=== PATIENT | female | born 1955 | race Caucasian/White ===

== ENCOUNTER 2023-09-21 20:48 | Emergency (ER) | payer OTHER, SELFPAY ==
[2023-09-21] MEDS: BENADRYL 25 MG PO ×2 (20:58→23:36)
--- NOTE | 2023-09-21 23:14 | ED.GENMED ---
History of Present Illness
General
Chief Complaint: Allergic Reaction
Source: patient
Exam Limitations: none
Time Seen by Provider: 09/21/23 23:13
Nursing documentation reviewed up to this point in time: agreed with
History of Present Illness
History of Present Illness:
The patient is a pleasant 68-year-old female who reports that earlier she drank out of her water bottle without looking and noticing that there were ants on her water bottle, and large black ants went onto her mouth and crawled down her arms and
legs. Patient reports that she got stung multiple times by the ants. She has redness and itching on her arms and legs. She also was bit on her upper lip and has mild swelling of her upper lip. Patient reports she did not take any medicine prior
to arrival. Patient reports that she feels slightly weird in her throat. She denies any difficulty breathing.
Past History
Past History
ED Past Medical History: Arrthythmia (Paroxysmal atrial fibrillation), Cancer (Right breast cancer 2007 treated with lumpectomy, chemotherapy and radiation.) and Hyperthyroidism
ED Past Surgical History: Other (Right breast lumpectomy 2006)
Social History
Tobacco: Former smoker
Alcohol: None
Personal:
Living: with family
Employment: Employed
Family History
Family History: Other (Noncontributory)
Review of Systems
Review of Systems
Allergies reviewed?: Yes
All Other Systems: ROS reviewed and negative except as documented in HPI and ROS
Constitutional: Reports no symptoms
EENT: Reports other (Mild swelling of mid upper lip)
Respiratory: Reports no symptoms
Cardiac: Reports no symptoms
ABD/GI: Reports no symptoms
: Reports no symptoms
Musculoskeletal: Reports no symptoms
Skin: Reports itching and rash
Neurological: Reports no symptoms
Endocrine: Reports no symptoms
Hematologic/Lymphatic: Reports no symptoms
Psychiatric: Reports no symptoms
Phy Exam
Physical Exam
Physical Exam:
Physical Exam
General: no apparent distress, not acutely ill. Well and comfortable appearing
Neck: supple. Mild erythema and swelling of the mid upper lip. No swelling of lower lip. No swelling of eyelids. No conjunctival injection. No pooling of saliva. No uvular swelling. No hoarseness observed. Patient
appears calm and relaxed. She is breathing comfortably without stridor
Heart: s1/s2 regular rate and rhythm, no murmur. equal radial pulses.
Lungs: no acute respiratory distress. clear bilaterally
Abdomen: Soft, nontender
Neuro: alert and oriented. no focal neurological deficits
Skin: 1-2 papules on bilateral arms and legs which patient states are ant bites and are itchy. No hives
Psychiatric: well kept. interactive and cooperative
Extremities: no edema.
Course
Orders/Labs/Results
Orders:
Orders
09/21/23 20:57
Diphenhydramine [Benadryl] 25 mg .ROUTE .STK-MED ONE
09/21/23 20:58
Diphenhydramine [Benadryl] 25 mg PO NOW STA
09/21/23 23:24
Diphenhydramine [Benadryl] 25 mg PO NOW STA
09/21/23 23:25
Prednisone [Deltasone] 40 mg PO NOW STA
Vital Signs
Initial and Last Documented VS:
Initial Vital Signs
Temp Pulse Resp BP Pulse Ox
98.4 F 98 18 156/96 98
09/21/23 20:50 09/21/23 20:50 09/21/23 20:50 09/21/23 20:50 09/21/23 20:50
Last Documented Vital Signs
Temp Pulse Resp BP Pulse Ox
98.4 F 78 18 162/91 99
09/21/23 20:50 09/21/23 23:44 09/21/23 23:44 09/21/23 23:44 07/31/24 23:44
MDM/Problems Addressed
Differential Diagnosis Includes:
Acute allergic reaction, contact dermatitis
MDM/Problems Addressed:
Patient presents with acute itchy ant bites, including mid upper lip
*Pulse Oximetry
Patient hypoxic: no
*EKG
Interpreted by ED Provider?: NA
*Helper Teacher Interpretation
Rate: Helper Teacher- N/A
*Critical Care Note
Total Time (30-74mins, 75-104mins- exclusive of procedures): Not Applicable
Data Reviewed
Source: patient
Patient Management
Social determinants of health affecting care: Living situation and Strong social support
Escalation/DeEscalation of care consider admission/obs:
Patient shows no sign of any airway compromise. She is breathing comfortably. Patient will be encouraged to continue to take Benadryl and started on steroids.
ED Attending Note
-
Portions of this chart may have been created with voice recognition software.� Occasional wrong word or��sound alike� substitutions may have occurred due to the inherent limitations of voice recognition software.
Discharge Plan
Departure
Patient Disposition: Home (Routine Discharge)
Date of Disposition: 09/21/23
Time of Disposition: 23:28
Patient with high blood pressure during this ER visit?: Yes
Condition: Good
Covid-19: Not Applicable
Discharge Problem:
Allergic reaction to insect bite
Instructions: Allergic Reaction ED
Prescriptions:
New
prednisone 10 mg tablet
10 mg PO DAILY Qty: 12 0RF
Rx Instructions:
Take 3 tablets by mouth on day 2 and 3
Take 2 tablets by mouth on day 4 and 5
Take 1 tablet by mouth once a 6 and 7
epinephrine [EpiPen 2-Edgar] 0.3 mg/0.3 mL auto-injector
0.3 ml IM ONCE PRN (Reason: anaphylaxis) Qty: 2 0RF
No Action
ibuprofen 600 MG tablet
600 mg PO QIDPRN PRN (Reason: pain, take with food.) Qty: 30 0RF
calcium carbonate [Antacid Extra-Strength] 1 TABLET tablet,chewable
2 tab PO HS
omeprazole 40 MG capsule,delayed release(DR/EC)
40 mg PO DAILY
nadolol 20 MG tablet
20 mg PO HS
ranitidine HCl [Taladine] 300 MG capsule
300 mg PO HS
melatonin 5 MG tablet
5 mg PO HS
methimazole 5 MG tablet
3.75 mg PO HS
Patient Comments:
3/4 OF A 5MG TABLET
fluticasone propionate 1 SPRAY spray,suspension
1 spray intranasal DAILY PRN (Reason: NASAL CONGESTION)
Vitamin B Complex-50
1 tab PO HS
rivaroxaban [Xarelto] 20 MG tablet
20 mg PO QPM
Referrals:
Yesy Caraballo MD [Family Provider] -
Activity Restrictions/Additional Instructions:
An epinephrine pen was also prescribed to you to use if you are unable to swallow your saliva, if you develop tongue swelling, or any difficulty breathing.
Please take 50 mg of Benadryl every 8 hours as needed for any lingering lip swelling or itching.
Interventions
Interventions:
*Risk Screen - Suicide Last Done: 09/21/23 20:50
*General Assessment Last Done: 09/21/23 20:50
*Neglect/Abuse Screening Last Done: 09/21/23 20:50
*Nursing Disposition Last Done: 09/21/23 23:44
ED- Cardiac Assessment Last Done: 09/21/23 23:38
ED- Pulmonary Assessment Last Done: 09/21/23 23:38
ED-Skin Assessment Last Done: 09/21/23 23:38
Discharge Date and Time
Discharge Date/Time: 09/21/23 23:45
Print Language: [id number]
[2023-09-21] MEDS: DELTASONE 40 MG PO (23:36)
== END 2023-09-21 23:45 | disposition home or self-care (01) ==
LOC: EMR 20:48
PROVIDERS: EMERGENCY PHYSICIAN Emergency Medicine; FAMILY PHYSICIAN Emergency Medicine
DX: T63.481A Toxic effect of venom of other arthropod, accidental (unintentional), initial encounter (principal); X58.XXXA Exposure to other specified factors, initial encounter; E05.90 Thyrotoxicosis, unspecified without thyrotoxic crisis or storm; I48.0 Paroxysmal atrial fibrillation; Z87.891 Personal history of nicotine dependence
CPT/HCPCS: 99282

== ENCOUNTER → 2024-03-09 06:46 | Outpatient (REF) | payer OTHER, SELFPAY | LOC: HWWDC 06:46 | PROVIDERS: ATTENDING PHYSICIAN Obstetrics & Gynecology; FAMILY PHYSICIAN Emergency Medicine; REFERRING PHYSICIAN Internal Medicine Hematology & Oncology | DX: Z12.31 Encounter for screening mammogram for malignant neoplasm of breast (principal) | CPT/HCPCS: 77063; 77067 ==

== ENCOUNTER → 2024-06-29 10:21 | Outpatient (REF) | payer OTHER, SELFPAY | LOC: HWRAD 10:21 | PROVIDERS: ATTENDING PHYSICIAN Family Medicine | DX: M25.562 Pain in left knee (principal) | CPT/HCPCS: 73564 ==

== ENCOUNTER 2024-10-16 17:54 | Outpatient (RCR) | payer OTHER, SELFPAY | END 2024-10-16 23:59 | disposition home or self-care (01) | LOC: RPT 17:54 | PROVIDERS: ATTENDING PHYSICIAN Family Medicine | DX: M25.562 Pain in left knee (principal); Z73.6 Limitation of activities due to disability; M17.12 Unilateral primary osteoarthritis, left knee; M62.81 Muscle weakness (generalized); R26.89 Other abnormalities of gait and mobility | CPT/HCPCS: 97010; 97110; 97162; 97530 ==

== ENCOUNTER 2024-11-13 17:55 | Outpatient (RCR) | payer OTHER, SELFPAY | END 2024-11-13 23:59 | disposition home or self-care (01) | LOC: RPT 17:55 | PROVIDERS: ATTENDING PHYSICIAN Family Medicine | DX: M25.562 Pain in left knee (principal); Z73.6 Limitation of activities due to disability; M17.12 Unilateral primary osteoarthritis, left knee; M62.81 Muscle weakness (generalized); R26.89 Other abnormalities of gait and mobility | CPT/HCPCS: 97110; 97530 ==

== ENCOUNTER 2024-12-06 17:54 | Outpatient (RCR) | payer OTHER, SELFPAY | END 2024-12-12 08:27 | disposition home or self-care (01) | LOC: RPT 17:54 | PROVIDERS: ATTENDING PHYSICIAN Family Medicine | DX: M25.562 Pain in left knee (principal); Z73.6 Limitation of activities due to disability; M17.12 Unilateral primary osteoarthritis, left knee; M62.81 Muscle weakness (generalized); R26.89 Other abnormalities of gait and mobility | CPT/HCPCS: 97110; 97530 ==